=== PATIENT | female | born 1935 | race Caucasian/White ===

== ENCOUNTER → 2017-11-25 | Day surgery (SDC) | payer MEDICARE ==
[~2017-11-25] VITALS: Ht 157.5 cm; Wt 61.4 kg
[~2017-11-25] MED LIST: ACETAMINOPHEN 1000 MG/100 ML 100 ML IV ONE; ACETAMINOPHEN/HYDROcodone 325 MG/7.5 MG TAB PO PRN; AMLO5TAB2 PO; ATOR10TA15 PO; BUPIVACAINE HCL PF 0.25% 30 ML VIAL ONE; CHLORHEXIDINE GLUCONATE 2 % 1 PACK (2 CLOTHS) TOPICAL PRN; CHLORHEXIDINE GLUCONATE 4% SOLN 120 ML BTL TOPICAL SCH; DEXAMETHASONE SOD PHOS 4 MG/ML VIAL IV ONE; FLEC100T PO; GENTAMICIN SULFATE 80 MG/2 ML VIAL ONE; HYDR-3288 PO; HYDR-4107 PO; KETOROLAC TROMETHAMINE 30 MG/ML (IVP) VIAL IV PUSH ONE; LACTATED RINGER'S 1000 ML INJ 1,000 ML IV ONE; LACTATED RINGER'S 1000 ML IV PRN; LIDOCAINE HCL 1% 50 ML VIAL ONE; LIDOCAINE HCL 1% PF 5 ML SYRINGE OTHER ONE; LISI-515 PO; METO25TA3 PO; METOPROLOL TARTRATE 25 MG TAB PO PRN; MORPHINE SULFATE 4 MG/ML INJ IV PUSH PRN; ONDANSETRON HCL 4 MG/2 ML VIAL IV ONE; PHENYLEPH/NS 1000 MCG/10 ML SYR IV ONE; POVIDONE IODINE 5% (ANTISEPSIS KIT) 4 APPLICATIONS EACH NARE PRN; PROPOFOL 200 MG/20 ML AMP IV ONE; SODIUM CHLORID 0.9% 500 ML IV PRN; SODIUM CHLORIDE 10 ML FLUSH BID IV FLUSH SCH; SODIUM CHLORIDE 10 ML FLUSH PRN IV FLUSH; ceFAZolin 2 GM PREMIX 50 ML IV SCH; ceFAZolin INJ 1,000 MG VIAL IV ONE; ePHEDrine/NS 25 MG/5 ML SYRINGE IV ONE
--- NOTE | 2017-11-25 15:13 | PD.OP ---
cc: Peter Christy MD Operative Report Date of Surgery: November 25, 2017 Preoperative Diagnosis: Fracture right distal radius, intra-articular, comminuted, three-part Postoperative Diagnosis: Postop diagnosis same Procedure: Open treatment internal fixation right distal radius fracture with volar plate and screws Anesthesia: General with local for pain control Surgeon: Peter Christy Customer Relations Coordinator(s): MELANIA Yi Operation and Findings: EBL: 50 cc INDICATION: This patient is an 82-year-old female who fell sustaining the above fracture 5 days ago. She presents for open treatment and internal fixation NOTE: Herlinda Yi PA-C was present for the entire surgical procedure as my ex assistant/program director. In my medical opinion her skill and care was necessary for proper management of this patient. PROCEDURE: The patient was brought to the operating room and anesthetized in the supine position. This patient was positioned with the arm on the arm table. Fluoroscopy was used for visualization. A timeout was done. Antibiotics were given within 1 hour time window. The right arm was scrubbed with alcohol followed by Hibiclens followed by ChloraPrep and draped sterilely. A tourniquet was placed after exsanguination the tourniquet was inflated to 250 mmHg. A volar incision was made along the flexor carpi radialis tendon. The pronator quadratus was lifted from its radial attachment. The fracture was visualized. This was brought into a reduced position and held. A volar plate was positioned and held provisionally. Because of the angulation of the fracture, we placed a locking screw in the plate holding the plate and a tilted angle. Multiple distal screws were placed and a transfixation screw outside the plate was placed from radial to ulnar. The distal radius was reduced near anatomically. We then removed the locking screw. Intraoperative x-ray showed anatomic alignment. Multiple distal locking screws were placed as well as shaft screws. The fracture was reduced anatomically. Intraoperative x-rays were obtained confirming the same. The tourniquet was let down. Hemostasis was controlled with the bipolar cautery. The wound was dry. The fascia was closed with 2-0 Vicryl suture. The skin and subcutaneous tissue was approximated with interrupted 3-0 nylon in a mattress fashion. A sterile dressing and a splint was applied. The patient was awakened and taken to the recovery room in satisfactory condition. COMPANY: Peter Donohue MD November 25, 2017 15:13
--- NOTE | 2017-11-25 15:23 | RADRPT ---
EXAM DATE/TIME: 11/25/2017 14:56 [facility] COMPARISON: No previous studies available for comparison. INDICATIONS : ORIF right wrist. MEDICAL HISTORY : None. SURGICAL HISTORY : None. ENCOUNTER: Initial ACUITY: 1 day PAIN SCORE: Non-responsive. LOCATION: Right Wrist FINDINGS: 2 spot intraoperative fluoroscopic views of the right wrist demonstrate volar plate and screw fixatio n traversing the comminuted fracture of the distal radial metaphysis extending to the articular surfa ce. CONCLUSION: Postoperative changes with plate and screw fixation. Mario Dodson MD on November 25, 2017 at 15:20 Board Certified Radiologist. This report was verified electronically.
[2017-11-25 18:00] VITALS: BP 107/46; PULSE 76; RESP 18; TEMP 98.6; O2SAT 100
== END | disposition home or self-care (01) ==
LOC: HSDC 09:42
PROVIDERS: ATTEND Orthopaedic Surgery Orthopaedic Surgery of the Spine
DX: S52.501A Unspecified fracture of the lower end of right radius, initial encounter for closed fracture (principal); R00.0 Tachycardia, unspecified; I10 Essential (primary) hypertension; E78.00 Pure hypercholesterolemia, unspecified; I35.0 Nonrheumatic aortic (valve) stenosis; I35.1 Nonrheumatic aortic (valve) insufficiency
CPT/HCPCS: 01830; 25609; 73100; 76000; C1713; J0131; J0690; J1100; J1580; J1885; J2370; J2405; J3010; J7120